=== PATIENT | male | born 1955 | race Caucasian/White ===

== ENCOUNTER 2020-07-24 15:45 | Inpatient (IN) | payer BC, OTHER, SELFPAY ==
[~2020-07-24] VITALS: Ht 188 cm; Wt 104.1 kg
[2020-07-24] MEDS ORDERED: SODIUM CHLORIDE 0.9% 1,000ML IVBOLUS ONE (16:30)
[2020-07-24] MEDS ORDERED: ACETAMINOPHEN 500 MG TABLET PO ONE (16:30)
[2020-07-24] MEDS ORDERED: ACETAMINOPHEN 500 MG TABLET ONE (16:44)
--- NOTE | 2020-07-24 16:48 | NUR ---
PT TO ROOM VIA WHEELCHAIR.
[2020-07-24 16:55] LABS: BASOPHILS % (AUTO) 1 % (0-1); EOSINOPHILS % (AUTO) 0 % (1-7); LYMPHOCYTES % (AUTO) 19 % (22-44); MEAN CORPUSCULAR HEMOGLOBIN 29.4 pg (27.5-34.5); MEAN CORPUSCULAR HGB CONC 34.8 g/dL (33.2-36.2); MEAN PLATELET VOLUME 8.1 fL (7.4-10.4); MONOCYTES % (AUTO) 9 % (2-9); NEUTROPHILS % (AUTO) 72 % (42-75); PLATELET COUNT 202 x10^3/uL (130-400); RED BLOOD COUNT 5.48 x10^6/uL (4.38-5.82); RED CELL DISTRIBUTION WIDTH 13.4 % (9.4-14.8)
[2020-07-24 16:56] LABS: MD NO
--- NOTE | 2020-07-24 17:05 | NUR ---
PT BROUGHT BACK FROM TRIAGE WITH CHIEF COMPLAINT OF FEVER, N/V, GENERAL WEAKNESS FOR 5 DAYS.
[2020-07-24 17:08] LABS: ALANINE AMINOTRANSFERASE 113 U/L (12-78); ALBUMIN 3.1 g/dL (3.4-5.0); ANION GAP 6 mmol/L (5-15); CALCIUM 8.7 mg/dL (8.5-10.1); CHLORIDE 96 mmol/L (98-107); CREATININE 0.98 mg/dL (0.7-1.3)
[2020-07-24 17:10] LABS: ALKALINE PHOSPHATASE 100 U/L (45-117); BILIRUBIN,TOTAL 1.1 mg/dL (0.2-1.0); TOTAL PROTEIN 7.5 g/dL (6.4-8.2)
[2020-07-24] MEDS ORDERED: POTASSIUM CHLORIDE 20 MEQ TAB.ER.PRT ONE (17:54)
--- NOTE | 2020-07-24 17:57 | NUR ---
PT RESTING IN BED, CALL LIGHT IN REACH
[2020-07-24] MEDS: PLEASE ENTER ALLERGIES MC SCH ×2 (18:00→23:11)
[2020-07-24] MEDS ORDERED: POTASSIUM CHLORIDE 20 MEQ TAB.ER.PRT PO ONE (18:00)
[2020-07-24] MEDS ORDERED: DOXYCYCLINE 100MG TABLET PO ONE (18:30)
[2020-07-24] MEDS ORDERED: AZITHROMYCIN 500 MG in SODIUM CHLORIDE 0.9% 250 ML IV ONE (18:30)
[2020-07-24] MEDS ORDERED: DOXYCYCLINE 100MG TABLET ONE (18:32)
--- NOTE | 2020-07-24 18:39 | NUR ---
ERMD AT BEDSIDE TO DISCUSS POC
[2020-07-24] MEDS ORDERED: ACETAMINOPHEN 325 MG TABLET PO PRN (19:30)
[2020-07-24] MEDS ORDERED: MELATONIN 5 MG TABLET PO PRN (19:30)
[2020-07-24] MEDS ORDERED: ONDANSETRON ODT 4 MG PO PRN (19:30)
[2020-07-24] MEDS: AZITHROMYCIN 500 MG in SODIUM CHLORIDE 0.9% 250 ML IV SCH (19:30)
[2020-07-24] MEDS ORDERED: CEFTRIAXONE PMX 1GM/50ML 50 ML ONE (20:21)
[2020-07-24] MEDS ORDERED: NS + 20MEQ KCL 1,000 ML IV ONE (20:21)
[2020-07-24] MEDS ORDERED: HEPARIN 5,000 UNITS/ML, 1ML ONE (20:21)
[2020-07-24] MEDS: NS + 20MEQ KCL 1,000 ML IV SCH (21:04)
[2020-07-24] MEDS: CEFTRIAXONE PMX 1GM/50ML 50 ML IV SCH (21:04)
[2020-07-24] MEDS: HEPARIN 5,000 UNITS/ML, 1ML SQ SCH (21:05)
--- NOTE | 2020-07-24 21:38 | NUR ---
PT PLACED IN HOSPITAL BED, RESTING MORE COMFORTABLY. VSS AND WILL CONT TO MONITOR.
--- NOTE | 2020-07-25 01:19 | NUR ---
REPORT FROM BRANDON MCCONNELL. PT CARE ASSUMED.
--- NOTE | 2020-07-25 01:26 | NUR ---
PT RESTING IN BED. DENIES ANY NEEDS. CALL LIGHT IN REACH.
[2020-07-25] MEDS: NS + 20MEQ KCL 1,000 ML IV SCH ×2 (03:30→14:15)
[2020-07-25] MEDS: HEPARIN 5,000 UNITS/ML, 1ML SQ SCH ×3 (03:30→20:39)
[2020-07-25 05:12] LABS: BASOPHILS % (AUTO) 0 % (0-1); EOSINOPHILS % (AUTO) 0 % (1-7); LYMPHOCYTES % (AUTO) 22 % (22-44); MEAN CORPUSCULAR HEMOGLOBIN 29.5 pg (27.5-34.5); MEAN CORPUSCULAR HGB CONC 34.6 g/dL (33.2-36.2); MEAN PLATELET VOLUME 8.3 fL (7.4-10.4); MONOCYTES % (AUTO) 10 % (2-9); NEUTROPHILS % (AUTO) 68 % (42-75); PLATELET COUNT 192 x10^3/uL (130-400); RED CELL DISTRIBUTION WIDTH 13.4 % (9.4-14.8)
[2020-07-25 05:16] LABS: MD NO
[2020-07-25 05:26] LABS: ALBUMIN 2.6 g/dL (3.4-5.0); ANION GAP 5 mmol/L (5-15); CALCIUM 8.3 mg/dL (8.5-10.1); CHLORIDE 103 mmol/L (98-107)
[2020-07-25 05:30] LABS: CREATININE 0.91 mg/dL (0.7-1.3)
[2020-07-25 05:31] LABS: ALANINE AMINOTRANSFERASE 108 U/L (12-78); ALKALINE PHOSPHATASE 95 U/L (45-117); BILIRUBIN,TOTAL 0.9 mg/dL (0.2-1.0); TOTAL PROTEIN 6.4 g/dL (6.4-8.2)
[2020-07-25] MEDS ORDERED: HEPARIN 5,000 UNITS/ML, 1ML ONE ×2 (05:35→11:47)
[2020-07-25] MEDS ORDERED: NS + 20MEQ KCL 1,000 ML IV ONE ×2 (05:38→14:12)
--- NOTE | 2020-07-25 06:22 | NUR ---
PT AWAKE. COMMODE AND URINAL EMPTIED. ALL PT NEEDS ADDRESSED. DENIES ANY FURTHER NEEDS OR CONCERNS. CALL LIGHT IN REACH. BREAKFAST ORDERED.
--- NOTE | 2020-07-25 06:55 | NUR ---
Report received from Eugenia TAYLOR. Care assumed.
[2020-07-25] MEDS ORDERED: POTASSIUM CHLORIDE 20 MEQ TAB.ER.PRT PO ONE (07:00)
[2020-07-25 07:45] LABS: C-REACTIVE PROTEIN, QUANT 5.3 mg/dL (0.02-0.49)
[2020-07-25 08:00] VITALS: BP 119/67
[2020-07-25 08:59] VITALS: BP 129/73
[2020-07-25] MEDS: PLEASE ENTER ALLERGIES MC SCH (10:00)
[2020-07-25] MEDS: ASCORBIC ACID 500 MG TABLET PO SCH ×3 (10:02→20:39)
[2020-07-25] MEDS: ZINC SULFATE 220 MG CAPSULE PO SCH (10:02)
[2020-07-25] MEDS: CHOLECALCIFEROL 5,000u TAB PO SCH (10:03)
[2020-07-25] MEDS: DEXAMETHASONE 4 MG/ML, 1ML IVPush SCH (10:03)
[2020-07-25] MEDS ORDERED: POTASSIUM CHLORIDE 20 MEQ TAB.ER.PRT ONE (10:09)
--- NOTE | 2020-07-25 10:58 | NUR ---
pts inpatient admit and assessment completed. POC discussed with Dr. Smith. Family contacted this RN requesting update on pt. Update given per pt request. Pt resting comfortably waiting for inpatient bed at this time. Denies additional needs.
[2020-07-25] MEDS: THIAMINE 100MG TABLET PO SCH (11:51)
[2020-07-25] MEDS: DIPHENOXYLATE/ATROPINE TABLET PO PRN ×2 (11:52→20:47)
[2020-07-25 14:00] VITALS: BP 132/78
--- NOTE | 2020-07-25 14:20 | NUR ---
pt second assessment completed in Inpatient documentation. pt resting comfortably at this time, denies any needs.
--- NOTE | 2020-07-25 15:46 | NUR ---
pts wallet, glasses, cell phone and cell phone legal instruments examiner handed to him. pt updated on POC/admit to [facility] medical floor. pt denies any needs at this time and verbalized understanding that he will be transfered in the bed.
[2020-07-25 16:19] VITALS: BP 129/84
[2020-07-25] MEDS ORDERED: LACTATED RINGERS 1,000 ML IV SCH (16:30)
[2020-07-25 18:41] VITALS: BP 122/79
[2020-07-25] MEDS: AZITHROMYCIN 500 MG in SODIUM CHLORIDE 0.9% 250 ML IV SCH (20:48)
[2020-07-25] MEDS: CEFTRIAXONE PMX 1GM/50ML 50 ML IV SCH (21:47)
[2020-07-25 22:29] LABS: RAPID INFLUENZA A Negative (Negative); RAPID INFLUENZA B Negative (Negative)
[2020-07-26 01:22] VITALS: BP 118/72
[2020-07-26] MEDS: DIPHENOXYLATE/ATROPINE TABLET PO PRN (05:29)
[2020-07-26] MEDS: HEPARIN 5,000 UNITS/ML, 1ML SQ SCH ×3 (05:29→22:00)
[2020-07-26] MEDS: ASCORBIC ACID 500 MG TABLET PO SCH ×3 (05:54→16:05)
[2020-07-26 06:13] LABS: BASOPHILS % (AUTO) 0 % (0-1); EOSINOPHILS % (AUTO) 0 % (1-7); LYMPHOCYTES % (AUTO) 21 % (22-44); MEAN CORPUSCULAR HEMOGLOBIN 29.2 pg (27.5-34.5); MEAN PLATELET VOLUME 8.2 fL (7.4-10.4); MONOCYTES % (AUTO) 10 % (2-9); NEUTROPHILS % (AUTO) 69 % (42-75); PLATELET COUNT 241 x10^3/uL (130-400); RED BLOOD COUNT 5.11 x10^6/uL (4.38-5.82); RED CELL DISTRIBUTION WIDTH 13.5 % (9.4-14.8)
[2020-07-26 06:20] LABS: ALBUMIN 2.7 g/dL (3.4-5.0); ANION GAP 8 mmol/L (5-15); CALCIUM 8.5 mg/dL (8.5-10.1); CHLORIDE 109 mmol/L (98-107)
[2020-07-26 06:22] LABS: ALANINE AMINOTRANSFERASE 97 U/L (12-78); ALKALINE PHOSPHATASE 106 U/L (45-117); BILIRUBIN,TOTAL 0.8 mg/dL (0.2-1.0); CREATININE 0.68 mg/dL (0.7-1.3); TOTAL PROTEIN 6.7 g/dL (6.4-8.2)
[2020-07-26 06:26] LABS: MD NO
[2020-07-26 08:01] VITALS: BP 132/87
[2020-07-26] MEDS: GUAIFENESIN/DM 200-20MG, 10ML UDC PO PRN ×2 (10:33→21:00)
[2020-07-26] MEDS: THIAMINE 100MG TABLET PO SCH (10:33)
[2020-07-26] MEDS: ZINC SULFATE 220 MG CAPSULE PO SCH (10:33)
[2020-07-26] MEDS: PSYLLIUM PACKET PO SCH ×2 (10:34→20:49)
[2020-07-26] MEDS: DEXAMETHASONE 4 MG/ML, 1ML IVPush SCH (10:34)
[2020-07-26] MEDS: DIPHENOXYLATE/ATROPINE TABLET PO SCH ×3 (10:34→20:49)
[2020-07-26 12:13] VITALS: BP 131/81
[2020-07-26] MEDS: CHOLECALCIFEROL 5,000u TAB PO SCH (13:53)
[2020-07-26 20:33] VITALS: BP 139/78
[2020-07-26] MEDS: AZITHROMYCIN 500 MG in SODIUM CHLORIDE 0.9% 250 ML IV SCH (20:51)
[2020-07-26] MEDS: CEFTRIAXONE PMX 1GM/50ML 50 ML IV SCH (22:00)
[2020-07-27 00:25] VITALS: BP 133/80
[2020-07-27] MEDS: DIPHENOXYLATE/ATROPINE TABLET PO SCH ×4 (06:25→22:04)
[2020-07-27] MEDS: ASCORBIC ACID 500 MG TABLET PO SCH ×3 (06:26→16:10)
[2020-07-27] MEDS: HEPARIN 5,000 UNITS/ML, 1ML SQ SCH ×3 (06:26→23:46)
[2020-07-27] MEDS: PSYLLIUM PACKET PO SCH ×2 (09:00→20:34)
[2020-07-27] MEDS: DEXAMETHASONE 4 MG/ML, 1ML IVPush SCH (09:14)
[2020-07-27] MEDS: ZINC SULFATE 220 MG CAPSULE PO SCH (09:14)
[2020-07-27] MEDS: GUAIFENESIN/DM 200-20MG, 10ML UDC PO PRN (09:14)
[2020-07-27] MEDS: THIAMINE 100MG TABLET PO SCH (09:14)
[2020-07-27] MEDS: CHOLECALCIFEROL 5,000u TAB PO SCH (09:14)
[2020-07-27 09:17] VITALS: BP 126/78
[2020-07-27 12:09] VITALS: BP 144/83
[2020-07-27 20:00] VITALS: BP 158/84
[2020-07-27] MEDS: AZITHROMYCIN 500 MG in SODIUM CHLORIDE 0.9% 250 ML IV SCH (20:42)
[2020-07-27] MEDS: CEFTRIAXONE PMX 1GM/50ML 50 ML IV SCH (22:19)
[2020-07-28 00:21] VITALS: BP 148/82
[2020-07-28 05:46] LABS: C-REACTIVE PROTEIN, QUANT 1.4 mg/dL (0.02-0.49)
[2020-07-28] MEDS: DIPHENOXYLATE/ATROPINE TABLET PO SCH ×2 (06:19→12:51)
[2020-07-28] MEDS: ASCORBIC ACID 500 MG TABLET PO SCH ×2 (06:19→12:51)
[2020-07-28] MEDS: PSYLLIUM PACKET PO SCH (08:22)
[2020-07-28] MEDS: CHOLECALCIFEROL 5,000u TAB PO SCH (09:27)
[2020-07-28] MEDS: GUAIFENESIN/DM 200-20MG, 10ML UDC PO PRN (09:27)
[2020-07-28] MEDS: ZINC SULFATE 220 MG CAPSULE PO SCH (09:27)
[2020-07-28] MEDS: THIAMINE 100MG TABLET PO SCH (09:28)
[2020-07-28] MEDS: DEXAMETHASONE 4 MG/ML, 1ML IVPush SCH (09:28)
[2020-07-28] MEDS ORDERED: FLU VACC QS2020-21(6MOS UP)/PF 60MCG/0.5 ML SYR IM-VACC ONE (09:30)
[2020-07-28] MEDS: HEPARIN 5,000 UNITS/ML, 1ML SQ SCH (09:36)
[2020-07-28 09:37] VITALS: BP 123/79
[2020-07-28] MEDS ORDERED: DEXA6TAB6 PO (09:51)
[2020-07-28] MEDS ORDERED: CEFD300C37 PO (09:51)
[2020-07-28] MEDS ORDERED: GUAI5SYR PO (09:51)
[2020-07-28] MEDS ORDERED: AZIT500T10 PO (09:51)
[2020-07-28 13:43] VITALS: BP 130/82
== END 2020-07-28 14:29 | disposition home or self-care (01) | DRG 871 ==
LOC: ED 19:25 → EDIP 20:40 → 3N 07-25 16:08
PROVIDERS: ADMIT Family Medicine; ATTEND Hospitalist
DX: A41.89 Other specified sepsis (principal); J12.89 Other viral pneumonia; U07.1 COVID-19; E87.1 Hypo-osmolality and hyponatremia; E86.0 Dehydration; E87.6 Hypokalemia; R09.02 Hypoxemia; Z23 Encounter for immunization; R19.7 Diarrhea, unspecified
CPT/HCPCS: 36415; 71045; 76705; 80053; 80074; 83605; 83615; 83735; 84145; 85025; 85379; 86140; 87040; 87400; 90686; 93005; 96361; 96365; 99285; G0378; J0456; J0696; J1100; J1644; J3480; J7030; J7050; J7120; U0003